=== PATIENT | male | born 1945 | race Caucasian/White ===

== ENCOUNTER 2021-03-23 16:10 | Emergency (ER) | payer MEDICARE ==
[~2021-03-23] VITALS: Ht 195.6 cm; Wt 100.0 kg
--- NOTE | 2021-03-23 17:32 | NUR ---
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
--- NOTE | 2021-03-23 18:01 | NUR ---
PT BECAME AGITATED WITH THIS RN, STATING "ARE YOU GOING TO GO DO SOMETHING OR AM I GONNA HAVE TO SLAP YOU" DIRECTED PT TO SIT ON CHAIR TO PREVENT FALL FROM [facility], PT BACK ON [facility]. SITTER OUTSIDE OF ROOM FOR SAFETY.
[2021-03-23] MEDS ORDERED: HALOPERIDOL 5 MG/ML ONE (18:12)
--- NOTE | 2021-03-23 18:28 | NUR ---
JENNA PT'S CALLING TO UPDATE MEDICARE NUMBER FOR PT [id number]
[2021-03-23] MEDS ORDERED: HALOPERIDOL 5 MG/ML IM ONE (18:30)
[2021-03-23] MEDS ORDERED: CHOL10003 PO (19:02)
[2021-03-23] MEDS ORDERED: MECO10005 PO (19:02)
[2021-03-23] MEDS ORDERED: LISI10TA19 PO (19:02)
[2021-03-23] MEDS ORDERED: SPIR25TA5 PO (19:02)
[2021-03-23] MEDS ORDERED: ASPI-963 PO (19:02)
[2021-03-23] MEDS ORDERED: ATOR10TA9 PO (19:02)
[2021-03-23] MEDS ORDERED: NPH,100V5 SQ (19:02)
[2021-03-23 19:08] VITALS: BP 120/66
--- NOTE | 2021-03-23 19:21 | NUR ---
SPOKE WITH JENNA PT'S SPOUSE, JENNA PROVIDED MEDICATION LIST AND PMH.
[2021-03-23 20:11] LABS: BASOPHILS % (AUTO) 1 % (0-1); EOSINOPHILS % (AUTO) 2 % (1-7); LYMPHOCYTES % (AUTO) 22 % (22-44); MEAN CORPUSCULAR HEMOGLOBIN 30.3 pg (27.5-34.5); MEAN CORPUSCULAR HGB CONC 33.9 g/dL (33.2-36.2); MEAN PLATELET VOLUME 9.2 fL (7.4-10.4); MONOCYTES % (AUTO) 8 % (2-9); NEUTROPHILS % (AUTO) 67 % (42-75); PLATELET COUNT 218 x10^3/uL (130-400); RED BLOOD COUNT 4.48 x10^6/uL (4.38-5.82); RED CELL DISTRIBUTION WIDTH 14.5 % (9.4-14.8)
[2021-03-23 20:21] LABS: ALANINE AMINOTRANSFERASE 34 U/L (12-78); ALBUMIN 2.9 g/dL (3.4-5.0); ANION GAP 11 mmol/L (5-15); CALCIUM 9.4 mg/dL (8.5-10.1); CHLORIDE 107 mmol/L (98-107)
[2021-03-23 20:24] LABS: SALICYLATE LEVEL < 1.7 mg/dL (2.8-20.0)
[2021-03-23 20:25] LABS: ALKALINE PHOSPHATASE 113 U/L (45-117); BILIRUBIN,TOTAL 0.6 mg/dL (0.2-1.0); CREATININE 1.51 mg/dL (0.7-1.3); TOTAL PROTEIN 7.5 g/dL (6.4-8.2)
[2021-03-23 21:01] LABS: MICROSCOPIC AUTO
[2021-03-23 21:12] LABS: AMPHETAMINE SCREEN, URINE Negative (Negative); BARBITURATE SCREEN, URINE Negative (Negative); BENZODIAZEPINE SCREEN, URINE Negative (Negative); CANNABINOID SCREEN, URINE Negative (Negative); COCAINE SCREEN, URINE Negative (Negative); METHADONE SCREEN, URINE Negative (Negative); OPIATE SCREEN, URINE Negative (Negative)
--- NOTE | 2021-03-23 21:53 | NUR ---
report to Mansi PEARL at [facility]
== END 2021-03-23 18:00 | disposition home or self-care (01) ==
LOC: ED 17:58
DX: G30.1 Alzheimer's disease with late onset (principal); F02.81 Dementia in other diseases classified elsewhere, unspecified severity, with behavioral disturbance; Z20.822 Contact with and (suspected) exposure to COVID-19
CPT/HCPCS: 80053; 80299; 80307; 80320; 81001; 82962; 85025; 87635; 96372; 99283; J1630; 80329; G0480

== ENCOUNTER 2021-03-23 21:53 | Inpatient (IN) | payer MEDICARE ==
[~2021-03-23] VITALS: Ht 195.6 cm; Wt 95.0 kg
[~2021-03-23 21:53] MED LIST: ASPI-963 PO; ATOR10TA9 PO; CHOL10003 PO; LISI10TA19 PO; MECO10005 PO; NPH,100V5 SQ; SPIR25TA5 PO
[2021-03-23] MEDS ORDERED: LORazepam 2 MG/ML, 1ML IM PRN (22:00)
[2021-03-23] MEDS ORDERED: ONDANSETRON ODT 4 MG PO PRN (22:00)
[2021-03-23] MEDS ORDERED: BISACODYL 10 MG SUPP PR PRN (22:00)
[2021-03-23] MEDS ORDERED: ACETAMINOPHEN 325 MG TABLET PO PRN (22:00)
[2021-03-23] MEDS ORDERED: POLYETHYLENE GLYCOL 17 GM PACKET PO PRN (22:00)
[2021-03-23] MEDS ORDERED: DOCUSATE 100 MG CAPSULE PO PRN (22:00)
[2021-03-23] MEDS ORDERED: QUETIAPINE 25MG TABLET PO PRN (22:00)
[2021-03-23] MEDS ORDERED: LORazepam 1MG TABLET PO PRN (22:00)
[2021-03-23 22:19] VITALS: BP 100/62
[2021-03-23] MEDS ORDERED: PLEASE ENTER HEIGHT AND WEIGHT MC SCH (23:00)
[2021-03-24] MEDS: DIVALPROEX 125 MG CAP.SPRINK PO SCH ×3 (00:42→20:39)
[2021-03-24 07:29] VITALS: BP 100/65
[2021-03-24 08:50] LABS: CHOL/HDL RATIO 3.7; FREE T4 (FREE THYROXINE) 1.36 ng/dL (0.76-1.46); LDL/HDL RATIO 1.9 (0.5-3.0)
[2021-03-24 13:09] LABS: ALANINE AMINOTRANSFERASE 31 U/L (12-78); ALBUMIN 2.8 g/dL (3.4-5.0); ANION GAP 13 mmol/L (5-15); CALCIUM 8.8 mg/dL (8.5-10.1); CHLORIDE 106 mmol/L (98-107); CREATININE 1.63 mg/dL (0.7-1.3)
[2021-03-24 13:12] LABS: ALKALINE PHOSPHATASE 98 U/L (45-117); BILIRUBIN,TOTAL 0.7 mg/dL (0.2-1.0)
[2021-03-24] MEDS: INSULIN LISPRO 100 UNITS/ML, PEN SQ-INSULIN SCH ×3 (13:52→20:42)
[2021-03-24] MEDS ORDERED: QUETIAPINE 25MG TABLET PO PRN (16:00)
[2021-03-24 19:46] VITALS: BP 110/66
[2021-03-24] MEDS: QUETIAPINE 25MG TABLET PO SCH (20:39)
[2021-03-25 06:01] LABS: ANION GAP 8 mmol/L (5-15); CALCIUM 8.8 mg/dL (8.5-10.1); CHLORIDE 107 mmol/L (98-107)
[2021-03-25] MEDS: INSULIN LISPRO 100 UNITS/ML, PEN SQ-INSULIN SCH ×4 (07:00→20:53)
[2021-03-25] MEDS: DIVALPROEX 125 MG CAP.SPRINK PO SCH ×2 (07:48→20:52)
[2021-03-25 08:25] VITALS: BP 110/77
[2021-03-25] MEDS ORDERED: SODIUM CHLORIDE 0.9% 1,000 ML IV SCH (09:30)
[2021-03-25 12:53] LABS: MICROSCOPIC AUTO
[2021-03-25 19:24] VITALS: BP 134/76
[2021-03-25] MEDS: QUETIAPINE 25MG TABLET PO SCH (20:53)
[2021-03-26] MEDS: INSULIN LISPRO 100 UNITS/ML, PEN SQ-INSULIN SCH ×4 (07:00→20:14)
[2021-03-26 07:11] LABS: ANION GAP 8 mmol/L (5-15); CALCIUM 8.8 mg/dL (8.5-10.1); CHLORIDE 108 mmol/L (98-107); CREATININE 1.09 mg/dL (0.7-1.3)
[2021-03-26 07:34] VITALS: BP 135/77
[2021-03-26] MEDS: DIVALPROEX 125 MG CAP.SPRINK PO SCH ×2 (09:00→20:10)
[2021-03-26] MEDS: TAMSULOSIN 0.4 MG CAP.ER.24H PO SCH (13:49)
[2021-03-26 19:31] VITALS: BP 130/70
[2021-03-26] MEDS: QUETIAPINE 25MG TABLET PO SCH (20:10)
[2021-03-27] MEDS: INSULIN LISPRO 100 UNITS/ML, PEN SQ-INSULIN SCH ×4 (07:00→20:10)
[2021-03-27 07:49] VITALS: BP 97/61
[2021-03-27] MEDS: TAMSULOSIN 0.4 MG CAP.ER.24H PO SCH (09:12)
[2021-03-27] MEDS: DIVALPROEX 125 MG CAP.SPRINK PO SCH ×2 (09:12→20:07)
[2021-03-27 19:24] VITALS: BP 150/81
[2021-03-27] MEDS: QUETIAPINE 25MG TABLET PO SCH (20:07)
[2021-03-28] MEDS: INSULIN LISPRO 100 UNITS/ML, PEN SQ-INSULIN SCH ×4 (07:00→20:15)
[2021-03-28 07:19] VITALS: BP 114/70
[2021-03-28] MEDS: TAMSULOSIN 0.4 MG CAP.ER.24H PO SCH (09:16)
[2021-03-28] MEDS: DIVALPROEX 125 MG CAP.SPRINK PO SCH ×2 (09:16→20:14)
[2021-03-28] MEDS: KETOROLAC OPHTH 0.5%, 5ML LEFTEYE SCH ×3 (10:16→20:16)
[2021-03-28] MEDS: metFORMIN 850 MG TABLET PO SCH (17:35)
[2021-03-28 19:25] VITALS: BP 132/75
[2021-03-28 19:33] VITALS: BP 150/80
[2021-03-28] MEDS: QUETIAPINE 25MG TABLET PO SCH (20:14)
[2021-03-29] MEDS: INSULIN LISPRO 100 UNITS/ML, PEN SQ-INSULIN SCH ×4 (07:00→20:35)
[2021-03-29 07:30] VITALS: BP 132/85
[2021-03-29] MEDS: DIVALPROEX 125 MG CAP.SPRINK PO SCH ×2 (08:44→20:29)
[2021-03-29] MEDS: metFORMIN 850 MG TABLET PO SCH ×2 (08:44→17:38)
[2021-03-29] MEDS: TAMSULOSIN 0.4 MG CAP.ER.24H PO SCH (08:44)
[2021-03-29] MEDS: KETOROLAC OPHTH 0.5%, 5ML LEFTEYE SCH ×3 (09:11→20:30)
[2021-03-29 19:22] VITALS: BP 151/80
[2021-03-29] MEDS: QUETIAPINE 25MG TABLET PO SCH (20:30)
[2021-03-30] MEDS: INSULIN LISPRO 100 UNITS/ML, PEN SQ-INSULIN SCH ×4 (06:58→20:19)
[2021-03-30 07:12] VITALS: BP 135/77
[2021-03-30] MEDS: DIVALPROEX 125 MG CAP.SPRINK PO SCH ×2 (08:33→20:16)
[2021-03-30] MEDS: TAMSULOSIN 0.4 MG CAP.ER.24H PO SCH (08:33)
[2021-03-30] MEDS: metFORMIN 850 MG TABLET PO SCH ×2 (08:33→16:58)
[2021-03-30] MEDS: KETOROLAC OPHTH 0.5%, 5ML LEFTEYE SCH ×3 (09:18→20:17)
[2021-03-30 20:05] VITALS: BP 162/91
[2021-03-30] MEDS: QUETIAPINE 25MG TABLET PO SCH (20:17)
[2021-03-30 21:47] VITALS: BP 115/76
[2021-03-31] MEDS: INSULIN LISPRO 100 UNITS/ML, PEN SQ-INSULIN SCH ×2 (07:00→11:49)
[2021-03-31 07:57] VITALS: BP 112/74
[2021-03-31] MEDS: TAMSULOSIN 0.4 MG CAP.ER.24H PO SCH (08:42)
[2021-03-31] MEDS: DIVALPROEX 125 MG CAP.SPRINK PO SCH (08:43)
[2021-03-31] MEDS: metFORMIN 850 MG TABLET PO SCH (08:43)
[2021-03-31] MEDS: KETOROLAC OPHTH 0.5%, 5ML LEFTEYE SCH (08:44)
[2021-03-31] MEDS ORDERED: TAMS-11 PO (14:07)
[2021-03-31] MEDS ORDERED: DIVA125C2 PO (14:07)
[2021-03-31] MEDS ORDERED: QUET25TA7 PO (14:07)
[2021-03-31] MEDS ORDERED: METF850T PO (14:07)
== END 2021-03-31 17:40 | disposition home health service (06) | DRG 56 ==
LOC: 3E 22:26
PROVIDERS: ADMIT Psychiatry & Neurology Psychosomatic Medicine; ATTEND Psychiatry & Neurology Psychosomatic Medicine
DX: G30.9 Alzheimer's disease, unspecified (principal); F02.81 Dementia in other diseases classified elsewhere, unspecified severity, with behavioral disturbance; N17.0 Acute kidney failure with tubular necrosis; E11.9 Type 2 diabetes mellitus without complications; E53.8 Deficiency of other specified B group vitamins; E78.5 Hyperlipidemia, unspecified; E86.0 Dehydration; G47.00 Insomnia, unspecified; I10 Essential (primary) hypertension; I25.10 Atherosclerotic heart disease of native coronary artery without angina pectoris; Z79.4 Long term (current) use of insulin; Z79.82 Long term (current) use of aspirin; Z79.899 Other long term (current) drug therapy; Z87.891 Personal history of nicotine dependence
CPT/HCPCS: 36415; 71045; 76770; 80048; 80053; 80061; 81001; 82140; 82607; 82962; 83036; 84439; 84443; 93005; 92523-GN; J1815; J7030